=== PATIENT | male | born 1965 | race Native Hawaiian/Other Pacific Islander ===

== ENCOUNTER 2016-06-10 14:04 | Outpatient (CLI) | payer OTHER ==
[2016-06-10 14:53] LABS: PLATELET COUNT 155 K/uL (142-355)
[2016-06-10 16:06] LABS: POTASSIUM 4.9 mmol/L (3.6-5.2)
== END 2016-06-10 20:08 | disposition home or self-care (01) ==
LOC: LABW 14:04
DX: N18.3 Chronic kidney disease, stage 3 (moderate) (principal)
CPT/HCPCS: 36415; 80069; 81000; 82570; 84155; 85027

== ENCOUNTER 2017-11-07 12:58 | Outpatient (CLI) | payer OTHER | END 2017-11-07 19:12 | disposition home or self-care (01) | LOC: RAD 12:58 | DX: M25.511 Pain in right shoulder (principal) ==